=== PATIENT | male | born 1950 | race Caucasian/White ===

== ENCOUNTER 2017-05-11 18:49 | Inpatient (IN) | payer MEDICARE ==
[~2017-05-11] VITALS: Ht 170.2 cm; Wt 102.5 kg
[~2017-05-11 18:49] MED LIST: BLACK CHERRY PO; CIDE500T PO; FURO40TA6 PO; LATA2.5D3 EACHEYE; MULT-717 PO; POTA99TA2 PO; PRED20TA PO; SPIR100T2 PO; TIMO5DRO28 OP
[2017-05-11] MEDS ORDERED: morphine SULFATE 10 MG/ML, 1ML IVPush PRN ×2 (19:00→21:30)
[2017-05-11] MEDS ORDERED: KETOROLAC 30 MG/1 ML IVPush ONE (19:00)
[2017-05-11] MEDS ORDERED: SODIUM CHLORIDE FLUSH 10ML SYR IVF ONE (19:00)
[2017-05-11] MEDS ORDERED: SODIUM CHLORIDE 0.9% 1,000ML IVBOLUS ONE (19:00)
[2017-05-11] MEDS ORDERED: ONDANSETRON 2MG/ML, 2ML IVPush ONE (19:00)
[2017-05-11 19:13] LABS: HEMATOCRIT 36.5 % (39.2-51.8); HEMOGLOBIN 12.4 g/dL (13.7-18.0); WHITE BLOOD COUNT 7.1 x10^3/uL (3.4-10)
[2017-05-11 19:21] LABS: BLOOD UREA NITROGEN 22 mg/dL (7-18)
[2017-05-11] MEDS ORDERED: ONDANSETRON 2MG/ML, 2ML ONE (19:26)
[2017-05-11] MEDS ORDERED: morphine SULFATE 10 MG/ML, 1ML ONE (19:27)
[2017-05-11] MEDS ORDERED: SODIUM CHLORIDE 0.9% 1,000 ML IV ONE (21:21)
[2017-05-11] MEDS ORDERED: ONDANSETRON 2MG/ML, 2ML IVPush PRN ×2 (21:30→22:30)
[2017-05-11] MEDS ORDERED: ACETAMINOPHEN 325 MG TABLET PO PRN (22:30)
[2017-05-11] MEDS ORDERED: BISACODYL 10 MG SUPP PR PRN (22:30)
[2017-05-11] MEDS ORDERED: hydrALAzine 20 MG/ML, 1ML IVPush PRN (22:30)
[2017-05-11] MEDS ORDERED: POLYETHYLENE GLYCOL 17 GM PACKET PO PRN (22:30)
[2017-05-11] MEDS: SODIUM CHLORIDE 0.9% 1,000 ML IV SCH (22:55)
[2017-05-11] MEDS: ENOXAPARIN 40 MG/0.4 ML SQ SCH (22:56)
[2017-05-11 23:44] VITALS: BP 130/69
[2017-05-12 02:13] VITALS: BP 118/69
[2017-05-12] MEDS ORDERED: KETOROLAC 30 MG/1 ML IM PRN (07:00)
[2017-05-12 07:52] VITALS: BP 120/74
[2017-05-12] MEDS: MULTIVITAMIN 1 TABLET PO SCH (08:08)
[2017-05-12] MEDS: TIMOLOL 0.5% OP SCH (08:09)
[2017-05-12] MEDS: SENNA/DOCUSATE TABLET PO SCH (08:26)
[2017-05-12] MEDS: SODIUM CHLORIDE 0.9% 1,000 ML IV SCH ×2 (11:02→23:12)
[2017-05-12] MEDS: DOCUSATE 100 MG CAPSULE PO PRN ×2 (11:04→21:21)
[2017-05-12 14:30] VITALS: BP 119/70
[2017-05-12 18:59] VITALS: BP 134/75
[2017-05-12] MEDS ORDERED: LATANOPROST OPHTH 0.005%, 2.5ML EACHEYE SCH (21:00)
[2017-05-12] MEDS: ENOXAPARIN 40 MG/0.4 ML SQ SCH (23:12)
[2017-05-13 01:30] VITALS: BP 130/74
[2017-05-13 05:26] LABS: HEMATOCRIT 37.3 % (39.2-51.8); HEMOGLOBIN 12.6 g/dL (13.7-18.0); WHITE BLOOD COUNT 5.6 x10^3/uL (3.4-10)
[2017-05-13 05:38] LABS: BLOOD UREA NITROGEN 19 mg/dL (7-18)
[2017-05-13 05:43] LABS: ASPARTATE AMINO TRANSFERASE 51 U/L (15-37)
[2017-05-13 06:40] VITALS: BP 146/69
[2017-05-13] MEDS: TIMOLOL 0.5% OP SCH (07:55)
[2017-05-13] MEDS: MULTIVITAMIN 1 TABLET PO SCH (07:55)
[2017-05-13] MEDS: SENNA/DOCUSATE TABLET PO SCH (07:55)
[2017-05-13] MEDS ORDERED: KETOROLAC 30 MG/1 ML ONE (10:47)
[2017-05-13] MEDS: SODIUM CHLORIDE 0.9% 1,000 ML IV SCH (11:21)
[2017-05-13] MEDS ORDERED: KETOROLAC 30 MG/1 ML IV PRN (13:00)
[2017-05-13 13:29] VITALS: BP 130/67
== END 2017-05-13 17:04 | disposition home or self-care (01) | DRG 554 ==
LOC: ED 19:45 → EDIP 21:21 → 3NW 22:19
PROVIDERS: ADMIT Hospitalist; ATTEND Hospitalist
DX: M17.0 Bilateral primary osteoarthritis of knee (principal); E44.0 Moderate protein-calorie malnutrition; K74.60 Unspecified cirrhosis of liver; M25.462 Effusion, left knee; D53.1 Other megaloblastic anemias, not elsewhere classified; E86.9 Volume depletion, unspecified; Z68.35 Body mass index [BMI] 35.0-35.9, adult; F10.21 Alcohol dependence, in remission; H40.9 Unspecified glaucoma; M1A.9XX1 Chronic gout, unspecified, with tophus (tophi); M54.30 Sciatica, unspecified side
CPT/HCPCS: 36415; 80048; 80053; 85025; 96361; 96372; 96374; 96375; J1650; J1885; J2405; J2270; J7030; J7512

== ENCOUNTER 2018-05-08 11:41 | Inpatient (IN) | payer MEDICARE ==
[~2018-05-08] VITALS: Ht 172.7 cm; Wt 96.0 kg
[~2018-05-08 11:41] MED LIST changes: -SPIR100T2 PO; +SPIR100T4 PO
[2018-05-08] MEDS ORDERED: SODIUM CHLORIDE 0.9% 1,000 ML IV ONE (11:57)
[2018-05-08] MEDS ORDERED: SODIUM CHLORIDE FLUSH 10ML SYR IVF ONE (12:00)
[2018-05-08] MEDS ORDERED: SODIUM CHLORIDE 0.9% 1,000ML IV ONE (12:00)
[2018-05-08 12:43] LABS: CULTURE INDICATED? NO; MICROSCOPIC NOT IND
[2018-05-08 12:47] LABS: BASOPHILS # (AUTO) 0.11 x10^3/uL (0-0.1); BASOPHILS % (AUTO) 1 % (0-1); EOSINOPHILS % (AUTO) 0 % (1-7); LYMPHOCYTES # (AUTO) 0.96 x10^3/uL (1-3.4); LYMPHOCYTES % (AUTO) 9 % (22-44); MD NO; MEAN CORPUSCULAR HEMOGLOBIN 34.2 pg (27.5-34.5); MEAN CORPUSCULAR HGB CONC 34.1 g/dL (33.2-36.2); MEAN CORPUSCULAR VOLUME 100.1 fL (81-97); MEAN PLATELET VOLUME 7.9 fL (7.4-10.4); MONOCYTES # (AUTO) 1.43 x10^3/uL (0.2-0.8); MONOCYTES % (AUTO) 13 % (2-9); NEUTROPHILS # (AUTO) 8.24 x10^3/uL (1.8-6.8); NEUTROPHILS % (AUTO) 77 % (42-75); PLATELET COUNT 252 x10^3/uL (130-400); RED BLOOD COUNT 4.23 x10^6/uL (4.38-5.82); RED CELL DISTRIBUTION WIDTH 15.3 % (9.4-14.8)
[2018-05-08] MEDS ORDERED: ONDANSETRON 2MG/ML, 2ML ONE (12:49)
[2018-05-08] MEDS ORDERED: HYDROmorphone 2 MG/ML, 1ML ONE ×2 (12:49→14:44)
[2018-05-08] MEDS: HYDROmorphone 2 MG/ML, 1ML IVPush PRN ×4 (12:52→21:31)
[2018-05-08 12:55] LABS: INTERNATIONAL NORMALIZED RATIO 0.97 (0.93-1.1); PROTHROMBIN TIME 10.1 Seconds (9.6-11.5)
[2018-05-08] MEDS ORDERED: ONDANSETRON 2MG/ML, 2ML IVPush ONE (13:00)
[2018-05-08 13:12] LABS: CHLORIDE 96 mmol/L (98-107)
[2018-05-08 13:19] LABS: ALANINE AMINOTRANSFERASE 20 U/L (12-78); ALKALINE PHOSPHATASE 127 U/L (45-117); ANION GAP 13 mmol/L (5-15); BILIRUBIN,TOTAL 2.1 mg/dL (0.2-1.0); CALCIUM 9.5 mg/dL (8.5-10.1); CREATINE KINASE, TOTAL 22 U/L (39-308); CREATININE 1.57 mg/dL (0.7-1.3); TOTAL PROTEIN 7.8 g/dL (6.4-8.2)
[2018-05-08] MEDS ORDERED: GABA300C10 PO (13:27)
[2018-05-08] MEDS ORDERED: DORZ10DR27 EACHEYE (13:27)
[2018-05-08] MEDS ORDERED: ACYC800T4 PO (13:27)
[2018-05-08] MEDS ORDERED: ONDANSETRON 2MG/ML, 2ML IVPush PRN (16:30)
[2018-05-08] MEDS ORDERED: GABAPENTIN 100 MG CAPSULE PO SCH (16:30)
[2018-05-08] MEDS ORDERED: ACETAMINOPHEN 500 MG TABLET PO PRN (16:30)
[2018-05-08] MEDS ORDERED: LIDODERM 5% PATCH TD PRN (16:30)
[2018-05-08 17:36] VITALS: BP 134/83
[2018-05-08] MEDS: ACYCLOVIR 800 MG TABLET PO SCH ×3 (17:51→21:40)
[2018-05-08] MEDS: SODIUM CHLORIDE 0.9% 1,000 ML IV SCH (17:52)
[2018-05-08 20:36] VITALS: BP 113/68
[2018-05-08] MEDS: LATANOPROST OPHTH 0.005%, 2.5ML EACHEYE SCH (21:00)
[2018-05-08] MEDS: GABAPENTIN 100 MG CAPSULE PO SCH (21:47)
[2018-05-09] MEDS: HYDROmorphone 2 MG/ML, 1ML IVPush PRN ×3 (00:34→09:21)
[2018-05-09 02:00] VITALS: BP 105/71
[2018-05-09] MEDS: SODIUM CHLORIDE 0.9% 1,000 ML IV SCH ×2 (02:52→16:11)
[2018-05-09] MEDS: CYCLOBENZAPRINE 10 MG TABLET PO PRN ×2 (04:03→21:08)
[2018-05-09 04:47] LABS: BASOPHILS # (AUTO) 0.02 x10^3/uL (0-0.1); BASOPHILS % (AUTO) 0 % (0-1); EOSINOPHILS % (AUTO) 0 % (1-7); LYMPHOCYTES % (AUTO) 9 % (22-44); MD NO; MEAN CORPUSCULAR HEMOGLOBIN 34.4 pg (27.5-34.5); MEAN CORPUSCULAR HGB CONC 34.3 g/dL (33.2-36.2); MEAN CORPUSCULAR VOLUME 100.4 fL (81-97); MEAN PLATELET VOLUME 7.8 fL (7.4-10.4); MONOCYTES # (AUTO) 1.45 x10^3/uL (0.2-0.8); MONOCYTES % (AUTO) 13 % (2-9); NEUTROPHILS # (AUTO) 8.32 x10^3/uL (1.8-6.8); NEUTROPHILS % (AUTO) 77 % (42-75); PLATELET COUNT 240 x10^3/uL (130-400); RED BLOOD COUNT 3.59 x10^6/uL (4.38-5.82); RED CELL DISTRIBUTION WIDTH 14.7 % (9.4-14.8)
[2018-05-09 04:57] LABS: ALBUMIN 2.5 g/dL (3.4-5.0); ANION GAP 11 mmol/L (5-15); CALCIUM 8.6 mg/dL (8.5-10.1); CHLORIDE 98 mmol/L (98-107)
[2018-05-09 05:02] LABS: ALANINE AMINOTRANSFERASE 15 U/L (12-78); ALKALINE PHOSPHATASE 103 U/L (45-117); BILIRUBIN,TOTAL 2.3 mg/dL (0.2-1.0); CREATININE 1.37 mg/dL (0.7-1.3); TOTAL PROTEIN 6.5 g/dL (6.4-8.2)
[2018-05-09] MEDS: GABAPENTIN 100 MG CAPSULE PO SCH ×5 (06:00→21:12)
[2018-05-09] MEDS: ACYCLOVIR 800 MG TABLET PO SCH ×5 (06:01→21:08)
[2018-05-09 07:12] VITALS: BP 104/66
[2018-05-09] MEDS: POLYETHYLENE GLYCOL 17 GM PACKET PO SCH (09:22)
[2018-05-09] MEDS: DORZOLAMIDE HCL EACHEYE SCH (09:22)
[2018-05-09 12:07] VITALS: BP 102/68
[2018-05-09] MEDS: KETOROLAC 30 MG/1 ML IVPush SCH ×2 (13:33→21:08)
[2018-05-09] MEDS: MAGNESIUM OXIDE 400 MG TABLET PO SCH (16:11)
[2018-05-09 19:22] VITALS: BP 106/70
[2018-05-09] MEDS: LATANOPROST OPHTH 0.005%, 2.5ML EACHEYE SCH (21:20)
[2018-05-10 01:15] VITALS: BP 110/74
[2018-05-10] MEDS: SODIUM CHLORIDE 0.9% 1,000 ML IV SCH ×2 (03:50→05:43)
[2018-05-10] MEDS: KETOROLAC 30 MG/1 ML IVPush SCH (04:39)
[2018-05-10 04:56] LABS: ALBUMIN 1.7 g/dL (3.4-5.0); ANION GAP 8 mmol/L (5-15); CALCIUM 8.3 mg/dL (8.5-10.1); CHLORIDE 103 mmol/L (98-107); CREATININE 1.37 mg/dL (0.7-1.3)
[2018-05-10] MEDS: GABAPENTIN 100 MG CAPSULE PO SCH ×4 (05:42→19:59)
[2018-05-10] MEDS: ACYCLOVIR 800 MG TABLET PO SCH ×5 (05:43→19:51)
[2018-05-10 07:41] VITALS: BP 93/57
[2018-05-10] MEDS: DORZOLAMIDE HCL EACHEYE SCH (09:00)
[2018-05-10] MEDS: POLYETHYLENE GLYCOL 17 GM PACKET PO SCH (09:00)
[2018-05-10 14:00] VITALS: BP 89/56
[2018-05-10] MEDS: CYCLOBENZAPRINE 10 MG TABLET PO PRN (14:09)
[2018-05-10] MEDS: MAGNESIUM OXIDE 400 MG TABLET PO SCH (15:25)
[2018-05-10] MEDS: HYDROmorphone 2 MG/ML, 1ML IVPush PRN (15:25)
[2018-05-10 19:16] VITALS: BP 98/54
[2018-05-10] MEDS: LATANOPROST OPHTH 0.005%, 2.5ML EACHEYE SCH (19:51)
[2018-05-11 02:50] VITALS: BP 95/58
[2018-05-11] MEDS: ACYCLOVIR 800 MG TABLET PO SCH ×3 (05:21→15:25)
[2018-05-11] MEDS: GABAPENTIN 100 MG CAPSULE PO SCH ×3 (05:22→15:25)
[2018-05-11 07:48] VITALS: BP 101/59
[2018-05-11] MEDS: DORZOLAMIDE HCL EACHEYE SCH (09:00)
[2018-05-11] MEDS: POLYETHYLENE GLYCOL 17 GM PACKET PO SCH (09:00)
[2018-05-11] MEDS: MAGNESIUM OXIDE 400 MG TABLET PO SCH (09:40)
[2018-05-11] MEDS ORDERED: CYCL-259 PO (10:05)
[2018-05-11] MEDS ORDERED: MAGN400T50 PO (10:05)
[2018-05-11] MEDS ORDERED: LIDO700A20 TD (10:05)
[2018-05-11] MEDS: KETOROLAC 30 MG/1 ML IVPush SCH ×2 (11:42→15:30)
[2018-05-11 14:35] VITALS: BP 102/55
[2018-05-11] MEDS: HYDROmorphone 2 MG/ML, 1ML IVPush PRN (16:41)
== END 2018-05-11 17:21 | DRG 551 ==
LOC: ED 14:06 → SUATTDRO 15:49 → EDIP 16:01 → 3NW 17:17
PROVIDERS: ADMIT Hospitalist; ATTEND Hospitalist
DX: M48.15 Ankylosing hyperostosis [Forestier], thoracolumbar region (principal); E43 Unspecified severe protein-calorie malnutrition; E87.1 Hypo-osmolality and hyponatremia; E87.2 Acidosis; N17.9 Acute kidney failure, unspecified; M47.816 Spondylosis without myelopathy or radiculopathy, lumbar region; K70.30 Alcoholic cirrhosis of liver without ascites; I10 Essential (primary) hypertension; M1A.9XX1 Chronic gout, unspecified, with tophus (tophi); H40.9 Unspecified glaucoma; E86.0 Dehydration; B02.9 Zoster without complications; G89.29 Other chronic pain; M17.0 Bilateral primary osteoarthritis of knee; Z68.32 Body mass index [BMI] 32.0-32.9, adult; Z88.5 Allergy status to narcotic agent; Z88.6 Allergy status to analgesic agent
CPT/HCPCS: 36415; 71045; 72072; 72110; 80048; 80053; 81003; 82040; 82550; 83605; 83690; 83735; 83880; 84100; 85025; 85610; 85730; 87040; 93005; 93306; 93970; 96361; 96374; 96375; 99285; G0378; J1170; J1885; J2405; J7030

== ENCOUNTER 2019-06-01 11:58 | Inpatient (IN) | payer MEDICARE ==
[~2019-06-01] VITALS: Ht 170.2 cm; Wt 105.5 kg
[~2019-06-01 11:58] MED LIST changes: +ACYC800T4 PO; +CYCL-259 PO; +DORZ10DR27 EACHEYE; +GABA300C10 PO; +LIDO700A20 TD; +MAGN400T50 PO
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
[2019-06-01] MEDS ORDERED: MORPHINE SULFATE 4 MG/ML, 1ML IVPush PRN (12:30)
[2019-06-01] MEDS ORDERED: ONDANSETRON 2MG/ML, 2ML IVPush ONE (12:30)
[2019-06-01] MEDS ORDERED: SODIUM CHLORIDE FLUSH 10ML SYR IVF ONE (12:30)
[2019-06-01] MEDS ORDERED: ONDANSETRON 2MG/ML, 2ML ONE ×2 (12:40→16:26)
[2019-06-01] MEDS ORDERED: MORPHINE SULFATE 4 MG/ML, 1ML ONE (12:40)
[2019-06-01 12:47] LABS: BASOPHILS # (AUTO) 0.04 x10^3/uL (0-0.1); BASOPHILS % (AUTO) 0 % (0-1); EOSINOPHILS # (AUTO) 0.09 x10^3/uL (0-0.4); EOSINOPHILS % (AUTO) 1 % (1-7); LYMPHOCYTES # (AUTO) 1.17 x10^3/uL (1-3.4); LYMPHOCYTES % (AUTO) 14 % (22-44); MD NO; MEAN CORPUSCULAR HEMOGLOBIN 33.8 pg (27.5-34.5); MEAN CORPUSCULAR HGB CONC 33.3 g/dL (33.2-36.2); MEAN CORPUSCULAR VOLUME 101.5 fL (81-97); MEAN PLATELET VOLUME 7.8 fL (7.4-10.4); MONOCYTES # (AUTO) 0.84 x10^3/uL (0.2-0.8); MONOCYTES % (AUTO) 10 % (2-9); NEUTROPHILS # (AUTO) 6.09 x10^3/uL (1.8-6.8); NEUTROPHILS % (AUTO) 74 % (42-75); PLATELET COUNT 294 x10^3/uL (130-400); RED BLOOD COUNT 4.42 x10^6/uL (4.38-5.82); RED CELL DISTRIBUTION WIDTH 12.5 % (9.4-14.8)
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
[2019-06-01 12:53] LABS: ALANINE AMINOTRANSFERASE 22 U/L (12-78); ALBUMIN 2.9 g/dL (3.4-5.0); ANION GAP 14 mmol/L (5-15); CALCIUM 9.4 mg/dL (8.5-10.1); CHLORIDE 100 mmol/L (98-107)
[2019-06-01 12:56] LABS: ALKALINE PHOSPHATASE 161 U/L (45-117); BILIRUBIN,TOTAL 0.9 mg/dL (0.2-1.0); CREATININE 1.32 mg/dL (0.7-1.3); TOTAL PROTEIN 7.8 g/dL (6.4-8.2)
[2019-06-01] MEDS ORDERED: AMPICILLIN/SULBACTAM 3 GM in SODIUM CHLORIDE 0.9% 100 ML IV ONE (13:00)
[2019-06-01] MEDS ORDERED: SODIUM CHLORIDE 0.9%, 500ML IVBOLUS ONE (13:00)
--- NOTE | 2019-06-01 13:59 | NUR ---
PT RESTING COMFORTABLY ON GURNEY. JAME.
[2019-06-01] MEDS ORDERED: VANCOMYCIN 2,000 MG in SODIUM CHLORIDE 0.9% 500 ML IV ONE (14:00)
[2019-06-01] MEDS ORDERED: VANCOMYCIN PER PHARMACY MC ONE (14:00)
--- NOTE | 2019-06-01 14:27 | NUR ---
HOSPITALIST AT BEDSIDE.
--- NOTE | 2019-06-01 14:52 | NUR ---
REPORT GIVEN TO SCOTTY JEFFERSON.
[2019-06-01] MEDS ORDERED: morphine SULFATE 10 MG/ML, 1ML IVPush PRN (15:00)
[2019-06-01] MEDS: SODIUM CHLORIDE 0.9% 1,000 ML IV SCH (15:00)
[2019-06-01] MEDS ORDERED: hydrALAzine 20 MG/ML, 1ML IVPush PRN (15:00)
[2019-06-01] MEDS ORDERED: CYCLOBENZAPRINE 10 MG TABLET PO PRN (15:00)
[2019-06-01] MEDS ORDERED: ACETAMINOPHEN 325 MG TABLET PO PRN ×2 (15:00→16:30)
[2019-06-01] MEDS ORDERED: FENTANYL PF 100 MCG/2ML ONE ×3 (15:45→16:47)
[2019-06-01 15:56] LABS: HCT (SEDRATE) 44.9 % (39.2-51.8)
[2019-06-01] MEDS ORDERED: PHENYLEPHRINE 10 MG/ML ONE (16:07)
[2019-06-01] MEDS ORDERED: PROPOFOL 10 MG/ML, 20ML ONE (16:26)
[2019-06-01] MEDS ORDERED: CEFAZOLIN 1,000 MG ONE (16:26)
[2019-06-01] MEDS ORDERED: DEXAMETHASONE 4 MG/ML, 1ML ONE (16:26)
[2019-06-01] MEDS ORDERED: OXYcodone 5 MG/5 ML ORAL.SOL UDC PO PRN ×2 (16:30→19:00)
[2019-06-01] MEDS ORDERED: ONDANSETRON ODT 8 MG PO PRN (16:30)
[2019-06-01] MEDS ORDERED: hydrALAzine 20 MG/ML, 1ML IV PRN (16:30)
[2019-06-01] MEDS ORDERED: ONDANSETRON 2MG/ML, 2ML IV PRN (16:30)
[2019-06-01] MEDS ORDERED: PROMETHAZINE 25 MG/ML, 1ML IV PRN (16:30)
[2019-06-01] MEDS ORDERED: HYDROmorphone 2 MG/ML, 1ML IVPush PRN (16:30)
[2019-06-01] MEDS: FENTANYL PF 100 MCG/2ML IV PRN ×2 (16:45→16:55)
[2019-06-01] MEDS ORDERED: ACETAMINOPHEN 650 MG/20.3 ML UDC ONE (16:47)
[2019-06-01 17:55] VITALS: BP 98/65
[2019-06-01 19:09] VITALS: BP 100/67
[2019-06-01] MEDS ORDERED: FLU VAC QS 19-20(4YR UP)CEL/PF 0.5 ML IM-VACC ONE (19:30)
[2019-06-01] MEDS: DAPTOMYCIN 650 MG in SODIUM CHLORIDE 0.9% 100 ML IVPB SCH (21:18)
[2019-06-01] MEDS: AMPICILLIN/SULBACTAM 3 GM in SODIUM CHLORIDE 0.9% 100 ML IV SCH (23:11)
[2019-06-01] MEDS: OXYcodone IR 5MG TABLET PO PRN (23:20)
[2019-06-02 00:25] VITALS: BP 99/63
[2019-06-02] MEDS: LATANOPROST OPHTH 0.005%, 2.5ML EACHEYE SCH ×2 (00:56→21:42)
[2019-06-02] MEDS: SODIUM CHLORIDE 0.9% 1,000 ML IV SCH (04:06)
[2019-06-02 05:41] LABS: ANION GAP 8 mmol/L (5-15); CALCIUM 8.7 mg/dL (8.5-10.1); CHLORIDE 105 mmol/L (98-107); CREATININE 0.97 mg/dL (0.7-1.3)
[2019-06-02 05:51] LABS: BASOPHILS # (AUTO) 0.03 x10^3/uL (0-0.1); BASOPHILS % (AUTO) 1 % (0-1); EOSINOPHILS # (AUTO) 0.15 x10^3/uL (0-0.4); EOSINOPHILS % (AUTO) 3 % (1-7); LYMPHOCYTES # (AUTO) 0.61 x10^3/uL (1-3.4); LYMPHOCYTES % (AUTO) 12 % (22-44); MD NO; MEAN CORPUSCULAR HEMOGLOBIN 33.7 pg (27.5-34.5); MEAN CORPUSCULAR HGB CONC 33.2 g/dL (33.2-36.2); MEAN CORPUSCULAR VOLUME 101.7 fL (81-97); MEAN PLATELET VOLUME 7.5 fL (7.4-10.4); MONOCYTES % (AUTO) 13 % (2-9); NEUTROPHILS # (AUTO) 3.75 x10^3/uL (1.8-6.8); NEUTROPHILS % (AUTO) 72 % (42-75); PLATELET COUNT 245 x10^3/uL (130-400); RED BLOOD COUNT 3.46 x10^6/uL (4.38-5.82); RED CELL DISTRIBUTION WIDTH 12.6 % (9.4-14.8)
[2019-06-02] MEDS: AMPICILLIN/SULBACTAM 3 GM in SODIUM CHLORIDE 0.9% 100 ML IV SCH ×3 (06:36→22:42)
[2019-06-02 07:12] VITALS: BP 109/68
[2019-06-02] MEDS: OXYcodone IR 5MG TABLET PO PRN (07:37)
[2019-06-02] MEDS: DORZOLAMIDE OPHTH 2%, 10ML EACHEYE SCH (08:23)
[2019-06-02] MEDS: MAGNESIUM OXIDE 400 MG TABLET PO SCH (08:23)
[2019-06-02] MEDS: INDOMETHACIN 50 MG CAPSULE PO SCH ×3 (08:27→21:41)
[2019-06-02 13:14] VITALS: BP 91/55
[2019-06-02] MEDS ORDERED: SPIRONOLACTONE 100 MG TABLET PO SCH (16:00)
[2019-06-02] MEDS ORDERED: FUROSEMIDE 40 MG TABLET PO SCH (16:00)
[2019-06-02 19:45] VITALS: BP 94/58
[2019-06-02] MEDS: DAPTOMYCIN 650 MG in SODIUM CHLORIDE 0.9% 100 ML IVPB SCH (21:41)
[2019-06-03 02:42] VITALS: BP 92/59
[2019-06-03 06:13] LABS: BASOPHILS # (AUTO) 0.01 x10^3/uL (0-0.1); BASOPHILS % (AUTO) 0 % (0-1); EOSINOPHILS # (AUTO) 0.11 x10^3/uL (0-0.4); EOSINOPHILS % (AUTO) 3 % (1-7); LYMPHOCYTES # (AUTO) 0.48 x10^3/uL (1-3.4); LYMPHOCYTES % (AUTO) 11 % (22-44); MD NO; MEAN CORPUSCULAR HEMOGLOBIN 33.9 pg (27.5-34.5); MEAN CORPUSCULAR HGB CONC 33.5 g/dL (33.2-36.2); MEAN CORPUSCULAR VOLUME 101.4 fL (81-97); MEAN PLATELET VOLUME 7.3 fL (7.4-10.4); MONOCYTES # (AUTO) 0.53 x10^3/uL (0.2-0.8); MONOCYTES % (AUTO) 12 % (2-9); NEUTROPHILS # (AUTO) 3.32 x10^3/uL (1.8-6.8); NEUTROPHILS % (AUTO) 75 % (42-75); PLATELET COUNT 223 x10^3/uL (130-400); RED BLOOD COUNT 2.98 x10^6/uL (4.38-5.82); RED CELL DISTRIBUTION WIDTH 12.1 % (9.4-14.8)
[2019-06-03] MEDS: AMPICILLIN/SULBACTAM 3 GM in SODIUM CHLORIDE 0.9% 100 ML IV SCH ×3 (06:28→22:30)
[2019-06-03 06:32] LABS: ANION GAP 7 mmol/L (5-15); CALCIUM 8.4 mg/dL (8.5-10.1); CHLORIDE 100 mmol/L (98-107)
[2019-06-03 06:33] LABS: CREATININE 1.64 mg/dL (0.7-1.3)
[2019-06-03 07:13] VITALS: BP 92/58
[2019-06-03] MEDS ORDERED: SODIUM CHLORIDE 0.9% 1,000ML IVBOLUS ONE (07:30)
[2019-06-03] MEDS: DORZOLAMIDE OPHTH 2%, 10ML EACHEYE SCH (07:55)
[2019-06-03] MEDS: MAGNESIUM OXIDE 400 MG TABLET PO SCH (07:55)
[2019-06-03] MEDS: CYANOCOBALAMIN 1,000 MCG/ML, 1ML IM SCH (07:55)
[2019-06-03] MEDS: OXYcodone IR 5MG TABLET PO PRN ×3 (07:56→19:18)
[2019-06-03] MEDS ORDERED: POLYETHYLENE GLYCOL 17 GM PACKET PO PRN (10:30)
[2019-06-03 13:17] VITALS: BP 99/65
[2019-06-03] MEDS: HEPARIN 5,000 UNITS/ML, 1ML SQ SCH (17:41)
[2019-06-03] MEDS ORDERED: SODIUM CHLORIDE 0.9%, 500ML IVBOLUS ONE (18:00)
[2019-06-03 19:10] VITALS: BP 106/71
[2019-06-03] MEDS: LATANOPROST OPHTH 0.005%, 2.5ML EACHEYE SCH (21:19)
[2019-06-03] MEDS: DAPTOMYCIN 650 MG in SODIUM CHLORIDE 0.9% 100 ML IVPB SCH (21:20)
[2019-06-04] MEDS: HEPARIN 5,000 UNITS/ML, 1ML SQ SCH ×3 (01:46→16:57)
[2019-06-04] MEDS: OXYcodone IR 5MG TABLET PO PRN ×2 (01:46→06:31)
[2019-06-04 01:53] VITALS: BP 101/65
[2019-06-04 06:00] LABS: ANION GAP 8 mmol/L (5-15); CHLORIDE 100 mmol/L (98-107); CREATININE 1.51 mg/dL (0.7-1.3)
[2019-06-04] MEDS: AMPICILLIN/SULBACTAM 3 GM in SODIUM CHLORIDE 0.9% 100 ML IV SCH ×3 (06:31→22:48)
[2019-06-04 07:11] VITALS: BP 92/58
[2019-06-04] MEDS: DORZOLAMIDE OPHTH 2%, 10ML EACHEYE SCH (08:52)
[2019-06-04] MEDS: MAGNESIUM OXIDE 400 MG TABLET PO SCH (08:52)
[2019-06-04] MEDS: CYANOCOBALAMIN 1,000 MCG/ML, 1ML IM SCH (09:18)
[2019-06-04 13:19] VITALS: BP 97/58
[2019-06-04 20:35] VITALS: BP 106/67
[2019-06-04] MEDS: LATANOPROST OPHTH 0.005%, 2.5ML EACHEYE SCH (20:43)
[2019-06-04] MEDS: DAPTOMYCIN 650 MG in SODIUM CHLORIDE 0.9% 100 ML IVPB SCH (20:43)
[2019-06-05] MEDS: HEPARIN 5,000 UNITS/ML, 1ML SQ SCH ×3 (01:37→18:10)
[2019-06-05 02:09] VITALS: BP 93/59
[2019-06-05 04:59] LABS: CLOSTRIDIUM DIFFICILE ANTIGEN NEGATIVE; CLOSTRIDIUM DIFFICILE TOXIN NEGATIVE (Negative)
[2019-06-05 05:30] LABS: BASOPHILS # (AUTO) 0.02 x10^3/uL (0-0.1); BASOPHILS % (AUTO) 1 % (0-1); EOSINOPHILS % (AUTO) 3 % (1-7); LYMPHOCYTES % (AUTO) 13 % (22-44); MD NO; MEAN CORPUSCULAR HEMOGLOBIN 33.4 pg (27.5-34.5); MEAN CORPUSCULAR HGB CONC 33.7 g/dL (33.2-36.2); MEAN PLATELET VOLUME 7.3 fL (7.4-10.4); MONOCYTES # (AUTO) 0.39 x10^3/uL (0.2-0.8); MONOCYTES % (AUTO) 10 % (2-9); NEUTROPHILS # (AUTO) 2.81 x10^3/uL (1.8-6.8); NEUTROPHILS % (AUTO) 74 % (42-75); PLATELET COUNT 251 x10^3/uL (130-400); RED BLOOD COUNT 3.01 x10^6/uL (4.38-5.82); RED CELL DISTRIBUTION WIDTH 12.3 % (9.4-14.8)
[2019-06-05 05:35] LABS: ANION GAP 9 mmol/L (5-15); CALCIUM 8.4 mg/dL (8.5-10.1); CHLORIDE 100 mmol/L (98-107)
[2019-06-05 05:36] LABS: CREATININE 1.69 mg/dL (0.7-1.3)
[2019-06-05] MEDS: SODIUM CHLORIDE 0.9% 1,000 ML IV SCH ×3 (06:39→22:30)
[2019-06-05] MEDS: AMPICILLIN/SULBACTAM 3 GM in SODIUM CHLORIDE 0.9% 100 ML IV SCH (06:39)
[2019-06-05 07:23] VITALS: BP 86/53
[2019-06-05 08:27] VITALS: BP 90/55
[2019-06-05] MEDS: DORZOLAMIDE OPHTH 2%, 10ML EACHEYE SCH (09:29)
[2019-06-05] MEDS: DIPHENOXYLATE/ATROPINE TABLET PO SCH ×3 (11:28→21:14)
[2019-06-05] MEDS: CEFTRIAXONE PMX 2GM/50ML 50 ML IV SCH (11:28)
[2019-06-05] MEDS: CYANOCOBALAMIN 1,000 MCG/ML, 1ML IM SCH (11:29)
[2019-06-05 12:20] VITALS: BP 94/62
[2019-06-05 12:26] LABS: CREATININE,URINE RANDOM 20.9 mg/dL; URIC ACID,URINE RANDOM 18.2 mg/dL
[2019-06-05] MEDS: OXYcodone IR 5MG TABLET PO PRN ×2 (15:05→19:08)
[2019-06-05 19:26] VITALS: BP 100/55
[2019-06-05] MEDS: LATANOPROST OPHTH 0.005%, 2.5ML EACHEYE SCH (21:14)
[2019-06-06 00:48] VITALS: BP 92/54
[2019-06-06] MEDS: HEPARIN 5,000 UNITS/ML, 1ML SQ SCH ×2 (01:17→08:57)
[2019-06-06] MEDS: SODIUM CHLORIDE 0.9% 1,000 ML IV SCH (05:10)
[2019-06-06] MEDS: DIPHENOXYLATE/ATROPINE TABLET PO SCH ×2 (05:10→13:02)
[2019-06-06 05:14] LABS: ANION GAP 9 mmol/L (5-15); CALCIUM 8.5 mg/dL (8.5-10.1); CHLORIDE 108 mmol/L (98-107)
[2019-06-06 05:17] LABS: CREATININE 1.43 mg/dL (0.7-1.3)
[2019-06-06 06:55] VITALS: BP 99/65
[2019-06-06 07:20] VITALS: BP 96/61
[2019-06-06] MEDS ORDERED: DIPH1TAB6 PO (08:57)
[2019-06-06] MEDS ORDERED: CYCL-259 PO (08:57)
[2019-06-06] MEDS ORDERED: ACET325T26 PO (08:57)
[2019-06-06] MEDS ORDERED: OXYC5TAB3 PO (08:57)
[2019-06-06] MEDS: DORZOLAMIDE OPHTH 2%, 10ML EACHEYE SCH (08:57)
[2019-06-06] MEDS ORDERED: HEPA50002 SQ (08:57)
[2019-06-06] MEDS ORDERED: CALC-725 PO (09:05)
[2019-06-06] MEDS ORDERED: CHOL200052 PO (09:05)
[2019-06-06 12:24] VITALS: BP 104/68
[2019-06-06] MEDS: CEFTRIAXONE PMX 2GM/50ML 50 ML IV SCH (13:01)
[2019-06-06] MEDS: CYANOCOBALAMIN 1,000 MCG/ML, 1ML IM SCH (14:09)
[2019-06-06] MEDS: OXYcodone IR 5MG TABLET PO PRN (14:28)
== END 2019-06-06 15:15 | DRG 501 ==
LOC: ED 13:52 → EDIP 13:53 → ED 14:06 → 4NE 15:30
PROVIDERS: ADMIT Internal Medicine Infectious Disease; ATTEND Hospitalist
PROC: 0MBP0ZZ Excision of Left Knee Bursa and Ligament, Open Approach (ICD-10-PCS; principal; 2019-06-01 16:00)
PROC: 02HV33Z Insertion of Infusion Device into Superior Vena Cava, Percutaneous Approach (ICD-10-PCS; 2019-06-06)
PROC: B5181ZA Fluoroscopy of Superior Vena Cava using Low Osmolar Contrast, Guidance (ICD-10-PCS; 2019-06-06)
PROC: B548ZZA Ultrasonography of Superior Vena Cava, Guidance (ICD-10-PCS; 2019-06-06)
DX: M00.9 Pyogenic arthritis, unspecified (principal); L03.116 Cellulitis of left lower limb; E87.2 Acidosis; N17.9 Acute kidney failure, unspecified; K70.30 Alcoholic cirrhosis of liver without ascites; Z88.6 Allergy status to analgesic agent; Z88.8 Allergy status to other drugs, medicaments and biological substances; D53.9 Nutritional anemia, unspecified; I08.0 Rheumatic disorders of both mitral and aortic valves; M1A.9XX1 Chronic gout, unspecified, with tophus (tophi); M48.10 Ankylosing hyperostosis [Forestier], site unspecified; M70.42 Prepatellar bursitis, left knee; M81.0 Age-related osteoporosis without current pathological fracture; N18.3 Chronic kidney disease, stage 3 (moderate); T50.2X5A Adverse effect of carbonic-anhydrase inhibitors, benzothiadiazides and other diuretics, initial encounter; Y92.89 Other specified places as the place of occurrence of the external cause
CPT/HCPCS: 36415; 36573; 76770; 80048; 80053; 82550; 82570; 82607; 83605; 84145; 84300; 84443; 84550; 84560; 85025; 85651; 86140; 87040; 87070; 87075; 87077; 87205; 87324; 90674; 96365; 96375; G0378; J0295; J0690; J0696; J0878; J1100; J1644; J2405; J2704; J3010; C1751; J2270; J2370; J3420; J7030; J7040